=== PATIENT | female | born 1955 | race African-American/Black ===

== ENCOUNTER 2018-06-04 08:00 | Emergency (ER) | payer MEDICARE, OTHER ==
[2018-06-04] MEDS: ACETAMINOPHEN 325 MG TAB PO (08:43)
[2018-06-04 08:52] LABS: ADD UMIC NO; UR ASCORBIC ACID NEGATIVE (NEGATIVE); UR BILIRUBIN (Dip) NEGATIVE (NEGATIVE); UR BLOOD (Dip) NEGATIVE (NEGATIVE); UR CLARITY CLEAR (CLEAR); UR COLOR STRAW (YELLOW); UR GLUCOSE (Dip) NEGATIVE (NEGATIVE); UR KETONES (Dip) NEGATIVE (NEGATIVE); UR LEUKOCYTE ESTERASE (Dip) NEGATIVE Leu/ul (NEGATIVE); UR NITRITE (Dip) NEGATIVE (NEGATIVE); UR SPECIFIC GRAVITY (Dip) 1.012 (1.003-1.030); UR TOTAL PROTEIN (Dip) NEGATIVE (NEGATIVE); UR UROBILINOGEN (Dip) NEGATIVE (NEGATIVE)
== END 2018-06-04 10:45 | disposition home or self-care (01) ==
LOC: FTE 08:00
DX: M54.9 Dorsalgia, unspecified (principal)
CPT/HCPCS: 71045; 72040; 72100; 73030; 81003; 99284-25

== ENCOUNTER 2018-08-03 08:52 | Emergency (ER) | payer MEDICARE, OTHER | END 2018-08-03 10:35 | disposition home or self-care (01) | LOC: FTE 08:52 | DX: M54.12 Radiculopathy, cervical region (principal); R51 Headache | CPT/HCPCS: 70450; 72040; 99284-25 ==